=== PATIENT | male | born 1950 | race Caucasian/White ===

== ENCOUNTER 2023-05-10 11:20 | Outpatient (AMB) | payer MEDICARE, MEDICAID, SELFPAY ==
--- NOTE | 2023-05-10 12:05 | MHC.OFFWIV ---
Intake Vital Signs 05/10/23 12:07 Weight 130 lb BP 140/80 H Blood Pressure Location Rt brachial Position Sitting Pulse 62 Pulse Source Pulse Oximeter Pulse Oximetry (%) 94 Oxygen Delivery Method Room Air Intake Visit Reasons: Rt Eye irritation ( in Lobby) Intake Note: Patient herefor right eye irritation that has been present for about 3 days. Patient Tobacco Use Status: Current everyday Tobacco user Allergies No Known Allergies [No Known Allergies*] Allergy (Unverified 05/10/23 12:07) Medication List - Last Reviewed 05/10/23 by RICARDO Farrell amlodipine 10 mg PO DAILY buprenorphine-naloxone 8-2 mg 1 tab sublingual DAILY lisinopril 40 mg PO DAILY simvastatin 20 mg PO BEDTIME Do you need a note to return to daycare/school/sports/work: No HPI Rt Eye irritation ( in Lobby) HPI Details 73-year-old gentleman came in today to be evaluated for right eye irritation Patient says that he has cats and feel that he might have Cat here in his eye initially and he wrapped it and now it is irritated Patient has appointment with asbestos shingle roofer tomorrow He is seeing him every month for injections in his eye, patient was not able to tell me exactly what problem is He also have cataract in his left eye On examination he does not have any photophobia Review system revealed no fever no chills no headache no nasal discharge no coughing no shortness a breath I am treating him with Polytrim eyedrops, patient is to follow-up with asbestos shingle roofer tomorrow [facility] Social History Patient Tobacco Use Status: Current everyday Tobacco user Review of Systems Const All systems reviewed & are unremarkable except as noted in HPI and below Physical Exam Vital Signs: Last Vital Signs Pulse 62 05/10/23 12:07 BP 140/80 H 05/10/23 12:07 Pulse Ox 94 05/10/23 12:07 Oxygen Delivery Method Room Air 05/10/23 12:07 Const General: no acute distress Orientation/consciousness: patient oriented x3 Eyes Other: Right eye conjunctiva injected, no photophobia, pupils reactive to light, cornea clear Resp Effort & Inspection: normal respiratory effort and able to speak in complete sentences Auscultation: clear to auscultation bilaterally Cardio Other: S1 S2 Neuro General: patient oriented x3 Psych Mental Status: mental status grossly normal Assessment & Plan Assessment & Plan (1) Acute conjunctivitis, right eye: Code(s): H10.31 - Unspecified acute conjunctivitis, right eye Qualifiers: Acute conjunctivitis type: unspecified Qualified Code(s): H10.31 - Unspecified acute conjunctivitis, right eye Plan 73-year-old gentleman came in today to be evaluated for right eye irritation Patient says that he has cats and feel that he might have Cat here in his eye initially and he wrapped it and now it is irritated Patient has appointment with asbestos shingle roofer tomorrow He is seeing him every month for injections in his eye, patient was not able to tell me exactly what problem is He also have cataract in his left eye On examination he does not have any photophobia Review system revealed no fever no chills no headache no nasal discharge no coughing no shortness a breath I am treating him with Polytrim eyedrops, patient is to follow-up with asbestos shingle roofer tomorrow Medications: New polymyxin B sulf-trimethoprim 10,000 unit- 1 mg/mL while awake; do not exceed 6 doses in 24 hours 1 drp ophthalmic (eye) QID 10 mL 0RF 5 days Coding Level of Care Code Est Pt Level 3 (19725) Diagnoses Acute conjunctivitis of right eye, unspecified acute conjunctivitis type H10.31 Acute conjunctivitis type: unspecified
[2023-05-10 12:07] VITALS: BP 140/80; PULSE 62; O2SAT 94
== END 2023-05-10 13:13 | disposition home or self-care (01) ==
PROVIDERS: PCP Nurse Practitioner Family; Visit Provider Internal Medicine
DX: H10.31 Unspecified acute conjunctivitis, right eye (principal)
CPT/HCPCS: 99213